=== PATIENT | female | born 1945 | race Caucasian/White ===

== ENCOUNTER 2019-04-11 08:30 | Inpatient (IN) | payer OTHER ==
[~2019-04-11] VITALS: Ht 152.4 cm; Wt 83.9 kg
[2019-04-11] MEDS ORDERED: CLARITIN10 M1 PO (09:52)
[2019-04-11] MEDS ORDERED: JANUMET 50-5001 EACH PO (09:53)
[2019-04-11] MEDS ORDERED: ATORVASTATIN CA20 MG PO (09:54)
[2019-04-11] MEDS ORDERED: PANTOPRAZOLE SO40 MG PO (09:54)
[2019-04-11] MEDS ORDERED: LEVOXYL75 MCG PO (09:54)
[2019-04-11] MEDS ORDERED: LASIX20 MG PO (09:55)
[2019-04-11] MEDS ORDERED: ARICEPT10 MG PO (09:55)
[2019-04-11] MEDS ORDERED: SINGULAIR10 MG PO (09:55)
[2019-04-11] MEDS ORDERED: ELAVIL PO (09:56)
[2019-04-11] MEDS ORDERED: COZAAR50 MG PO (09:57)
[2019-04-11] MEDS ORDERED: BUSP PO (09:58)
[2019-04-11] MEDS ORDERED: TRILEPTAL300 MG PO (09:58)
[2019-04-11] MEDS ORDERED: CELECOXIB PO (09:58)
[2019-04-17] MEDS ORDERED: SUPREP BOWEL P354 ML PO (08:28)
[2019-04-17] MEDS ORDERED: CELEBREX50 MG (08:51)
[2019-04-17] MEDS ORDERED: AMITRIPTYLINE100 MG PO (08:53)
[2019-04-17] MEDS ORDERED: BUSPIRONE HCL5 MG (08:53)
[2019-04-19] MEDS ORDERED: DUI500 PO (14:03)
[2019-04-19] MEDS ORDERED: ELIQUIS2.5 MG PO (14:03)
[2019-04-19] MEDS ORDERED: PERCOCET 5-3251 EACH PO (14:03)
== END 2019-04-19 16:28 | DRG 470 ==
LOC: EDSTATUS 08:30 → ADM 08:30 → SURG 04-17 06:45 → O/R 04-17 06:45 → SURH 04-17 07:00 → SURG 04-17 13:05
PROVIDERS: ADMIT Orthopaedic Surgery
PROC: 0MNP0ZZ Release Left Knee Bursa and Ligament, Open Approach (ICD-10-PCS; 2019-04-17)
PROC: 0SRD0J9 Replacement of Left Knee Joint with Synthetic Substitute, Cemented, Open Approach (ICD-10-PCS; principal; 2019-04-17 07:00)
DX: M17.12 Unilateral primary osteoarthritis, left knee (principal); M81.0 Age-related osteoporosis without current pathological fracture; E11.9 Type 2 diabetes mellitus without complications; I10 Essential (primary) hypertension

== ENCOUNTER 2022-10-30 09:33 | Emergency (ER) | payer OTHER ==
[~2022-10-30] VITALS: Ht 152.4 cm; Wt 88.5 kg
[~2022-10-30 09:33] MED LIST: AMITRIPTYLINE100 MG PO; ARICEPT10 MG PO; ATORVASTATIN CA20 MG PO; BUSP PO; BUSPIRONE HCL5 MG; CELEBREX50 MG; CELECOXIB PO; CLARITIN10 M1 PO; COZAAR50 MG PO; DUI500 PO; ELAVIL PO; ELIQUIS2.5 MG PO; JANUMET 50-5001 EACH PO; LASIX20 MG PO; LEVOXYL75 MCG PO; PANTOPRAZOLE SO40 MG PO; PERCOCET 5-3251 EACH PO; SINGULAIR10 MG PO; SUPREP BOWEL P354 ML PO; TRILEPTAL300 MG PO
[2022-10-30] MEDS ORDERED: LANTUS SOL100 UNIT/1 SUBCUTANEO ×2 (09:53)
[2022-10-30] MEDS ORDERED: NATEGLINIDE120 MG PO (09:54)
== END 2022-10-30 12:35 ==
LOC: ER 09:33
DX: M54.50 Low back pain, unspecified (principal); M51.36 Other intervertebral disc degeneration, lumbar region; E03.9 Hypothyroidism, unspecified; I10 Essential (primary) hypertension; Z88.1 Allergy status to other antibiotic agents